=== PATIENT | female | born 2000 | race Caucasian/White ===

== ENCOUNTER 2021-09-11 12:23 | Emergency (ER) | payer BC ==
[~2021-09-11] VITALS: Ht 167.6 cm; Wt 59.0 kg
[2021-09-11] MEDS ORDERED: IV NORMAL SALINE 1000 ML BAG IV ONE (12:45)
--- NOTE | 2021-09-11 12:58 | NUR ---
PT IS IN ROOM #2B. DR CÁRDENAS EVALUATED THE PT.
[2021-09-11 13:14] LABS: CREATININE 0.6 mg/dL (0.6-1.3); POTASSIUM 3.7 mmol/L (3.5-5.1)
[2021-09-11 13:21] LABS: MEAN CORPUSCULAR HEMOGLOBIN 30.7 uug (24.7-32.8); MEAN CORPUSCULAR VOLUME 91.5 fL (75.5-95.3); PLATELET COUNT (AUTO) 322 K/uL (179-408)
[2021-09-11 13:26] LABS: BILIRUBIN,DIRECT 0.1 mg/dL (0.0-0.2); BILIRUBIN,TOTAL 0.5 mg/dL (0.2-1.0); TOTAL PROTEIN, SERUM 7.3 g/dL (6.4-8.2)
--- NOTE | 2021-09-11 15:33 | NUR ---
PT WAS D/C'd TO HOME. D/C INSTRUCTIONS GIVEN TO THE PT BY DR MURPHY.
[2021-09-11 15:55] VITALS: BP 122/71
== END 2021-09-11 16:10 | disposition home or self-care (01) ==
LOC: ER 12:26
DX: R10.84 Generalized abdominal pain (principal); R19.7 Diarrhea, unspecified; R52 Pain, unspecified
CPT/HCPCS: 99285; 96360; 76700; 71045; 96361; 80076; 80048; 83690; 85025; 36415; 93005; 74018; J7040; A4663